=== PATIENT | male | born 1970 | race Caucasian/White ===

== ENCOUNTER 2020-02-26 18:49 | Inpatient (IN) | payer OTHER ==
[2020-02-26 19:08] VITALS: BMI 28.1
[2020-02-26 21:26] LABS: BASO % 0.5 % (0-2.0); EOS % 1.7 % (0-4.5); HEMATOCRIT 39.7 % (35.4-49); HEMOGLOBIN 12.9 GM/dL (11.7-16.9); LYMPH % 20.5 % (8-40); MCH 26.8 pg (25.7-33.7); MCHC 32.5 g/dl (32.0-35.9); MEAN CELL VOLUME 82.4 fl (80-96); MEAN PLT VOLUME 8.7 fl (7.5-11.1); MONO % 6.2 % (3.8-10.2); NEUT % 71.1 % (42.8-82.8); PLATELET COUNT 195 K/MM3 (134-434); RBC 4.81 M/mm3 (4.00-5.60); RDW 15.6 % (11.9-15.9); WHITE BLOOD COUNT 6.6 K/mm3 (4.0-10.0)
[2020-02-26] MEDS ORDERED: ACETAMINOPHEN 325 MG TABLET (FP) PO ONE (21:32)
[2020-02-26 21:36] LABS: CHLORIDE 104 mmol/L (98-107); SODIUM 139 mmol/L (136-145)
[2020-02-26] MEDS ORDERED: ACETAMINOPHEN 325 MG TABLET (FP) ONE (21:36)
[2020-02-26 21:42] LABS: ANION GAP 2 MMOL/L (8-16); BLOOD UREA NITROGEN 18.9 mg/dL (7-18); CALCIUM 9.6 mg/dL (8.5-10.1); CO2 32 mmol/L (21-32)
[2020-02-26 21:43] LABS: GLUCOSE,RANDOM 101 mg/dL (74-106)
[2020-02-26 21:44] LABS: ALK PHOS 88 U/L (45-117)
[2020-02-26 21:45] LABS: SGPT/ALT 37 U/L (13-61)
[2020-02-26 21:46] LABS: CREATININE 1.3 mg/dL (0.55-1.3); SGOT/AST 26 U/L (15-37)
[2020-02-26 21:47] LABS: BILIRUBIN,TOTAL 0.5 mg/dL (0.2-1); TOT PROT 7.1 g/dl (6.4-8.2)
[2020-02-26 22:15] LABS: N-TERMINAL BNP 33.1 pg/ml (5-125)
[2020-02-26] MEDS ORDERED: LISINOPRIL 20 MG TABLET PO ONE (22:42)
[2020-02-26] MEDS ORDERED: LISINOPRIL 20 MG TABLET ONE (23:35)
[2020-02-27] MEDS ORDERED: SODIUM CHLORIDE 1,000 ML IV STA ×2 (03:20→03:41)
[2020-02-27 07:30] LABS: BASO % 0.7 % (0-2.0); EOS % 2.9 % (0-4.5); HEMATOCRIT 40.3 % (35.4-49); HEMOGLOBIN 13.3 GM/dL (11.7-16.9); LYMPH % 23.5 % (8-40); MCH 27.2 pg (25.7-33.7); MEAN CELL VOLUME 82.3 fl (80-96); MEAN PLT VOLUME 8.2 fl (7.5-11.1); MONO % 5.6 % (3.8-10.2); NEUT % 67.3 % (42.8-82.8); PLATELET COUNT 188 K/MM3 (134-434); RDW 15.4 % (11.9-15.9); WHITE BLOOD COUNT 5.6 K/mm3 (4.0-10.0)
[2020-02-27 07:34] LABS: PROTHROMBIN TIME (PATIENT) 12.3 SEC (9.7-13.0)
[2020-02-27 07:45] LABS: ALBUMIN 3.8 g/dl (3.4-5.0); BLOOD UREA NITROGEN 14.3 mg/dL (7-18); CALCIUM 8.8 mg/dL (8.5-10.1)
[2020-02-27 07:48] LABS: CHOLESTEROL 225 mg/dL (50-200); CREATININE 1.1 mg/dL (0.55-1.3); TRIGLYCERIDES 62 mg/dL (0-150)
[2020-02-27 07:49] LABS: LDL CHOLESTEROL (ONLY SJRH) 144 mg/dL (5-100); TOT PROT 6.8 g/dl (6.4-8.2)
[2020-02-27 07:50] LABS: HDL CHOLESTEROL 66 mg/dL (40-60)
[2020-02-27 07:53] LABS: BILIRUBIN,TOTAL 0.7 mg/dL (0.2-1)
[2020-02-27 09:49] LABS: URINE APPEARANCE CLEAR; URINE BILIRUBIN NEGATIVE (NEGATIVE); URINE COLOR YELLOW; URINE GLUCOSE (UA) NEGATIVE (NEGATIVE); URINE KETONE 1+ (NEGATIVE); URINE LEUK ESTERASE NEGATIVE (NEGATIVE); URINE NITRITE NEGATIVE (NEGATIVE); URINE PROTEIN NEGATIVE (NEGATIVE); URINE UROBILINOGEN 0.2 mg/dL (0.2-1.0)
[2020-02-27] MEDS ORDERED: ASPIRIN 81 MG CHEWABLE TABLETS PO SCH (10:00)
[2020-02-27] MEDS ORDERED: POLYETHYLENE GLYCOL 3350 119 GM BTL PO SCH (10:00)
[2020-02-27] MEDS ORDERED: metoPROLOL SUCCINATE 25 MG TAB.SR.24H (FP) PO SCH (10:00)
[2020-02-27] MEDS ORDERED: HYDROCHLOROTHIAZIDE 12.5 MG CAPSULE (FP) PO SCH (10:00)
[2020-02-27] MEDS ORDERED: ENOXAPARIN NA (PORCINE) 40 MG/0.4 ML DISP.SYRIN SQ SCH (10:00)
[2020-02-27] MEDS ORDERED: ENOXAPARIN NA (PORCINE) 40 MG/0.4 ML DISP.SYRIN SQ ONE (11:09)
[2020-02-27] MEDS ORDERED: ASPIRIN 81 MG CHEWABLE TABLETS ONE (11:09)
[2020-02-27] MEDS ORDERED: amLODIPine BESYLATE 5 MG TABLET (FP) PO ONE (16:55)
[2020-02-27] MEDS ORDERED: amLODIPine BESYLATE 5 MG TABLET (FP) ONE (16:59)
[2020-02-27 17:34] VITALS: BP 147/93; PULSE 85; TEMP 98.4
[2020-02-27] MEDS ORDERED: ATORVASTATIN CA 40 MG TABLET (FP) PO SCH (22:00)
[2020-02-27] MEDS ORDERED: SENNOSIDES 8.6MG TABLET (FP) PO SCH (22:00)
== END 2020-02-27 16:55 | disposition home or self-care (01) | DRG 313 ==
LOC: JER 18:49 → JERBED 22:05 → OBSVTOIN 23:13
PROVIDERS: ADMIT Internal Medicine; ATTEND Internal Medicine
DX: R07.89 Other chest pain (principal); I10 Essential (primary) hypertension
CPT/HCPCS: 36415; 71046-TC-FY; 80053; 80061; 81003; 82465; 82550; 82553; 83036; 83721; 83735; 83880; 84100; 84443; 84484; 85025; 85610; 85730; 93005; 93010; 93306-TC; 99285-25; C9803; G0378; U0003